=== PATIENT | female | born 1965 | race Caucasian/White ===

== ENCOUNTER 2017-12-25 11:34 | Inpatient (IN) | payer OTHER ==
[2017-12-22 13:27] LABS: BASOPHILS # (AUTO) 0.05 x10^3/uL (0-0.1); BASOPHILS % (AUTO) 1 % (0-1); EOSINOPHILS # (AUTO) 0.21 x10^3/uL (0-0.4); EOSINOPHILS % (AUTO) 4 % (1-7); INTERNATIONAL NORMALIZED RATIO 0.96 (0.93-1.1); LYMPHOCYTES # (AUTO) 1.81 x10^3/uL (1-3.4); LYMPHOCYTES % (AUTO) 31 % (22-44); MD NO; MEAN CORPUSCULAR HGB CONC 33.8 g/dL (32.4-35.8); MEAN CORPUSCULAR VOLUME 94.7 fL (80-100); MEAN PLATELET VOLUME 8.3 fL (7.4-10.4); MONOCYTES % (AUTO) 7 % (2-9); NEUTROPHILS # (AUTO) 3.33 x10^3/uL (1.8-6.8); NEUTROPHILS % (AUTO) 57 % (42-75); PLATELET COUNT 353 x10^3/uL (130-400); RED BLOOD COUNT 4.37 x10^6/uL (3.82-5.3); RED CELL DISTRIBUTION WIDTH 13.9 % (9.6-15.2)
[2017-12-22 13:29] LABS: ALBUMIN 3.9 g/dL (3.4-5.0); ANION GAP 9 mmol/L (5-15); CALCIUM 9.4 mg/dL (8.5-10.1); CHLORIDE 103 mmol/L (98-107)
[2017-12-22 13:32] LABS: ALANINE AMINOTRANSFERASE 27 U/L (12-78); ALKALINE PHOSPHATASE 103 U/L (45-117); BILIRUBIN,TOTAL 0.6 mg/dL (0.2-1.0); CREATININE 0.88 mg/dL (0.55-1.02); TOTAL PROTEIN 7.6 g/dL (6.4-8.2)
[~2017-12-25] VITALS: Ht 170.2 cm; Wt 68.3 kg
[~2017-12-25 11:34] MED LIST: IBUP-1221 PO
[2017-12-25] MEDS ORDERED: LACTATED RINGERS 1,000 ML IV SCH (12:22)
[2017-12-25] MEDS ORDERED: ACETAMINOPHEN 500 MG TABLET PO ONE (12:30)
[2017-12-25] MEDS ORDERED: ONDANSETRON ODT 8 MG PO ONE (12:30)
[2017-12-25] MEDS ORDERED: GABAPENTIN 300 MG CAPSULE PO ONE (12:30)
[2017-12-25] MEDS ORDERED: MIDAZOLAM 1 MG/ML, 2ML ONE (12:57)
[2017-12-25] MEDS ORDERED: PROPOFOL 10 MG/ML, 20ML ONE ×2 (12:58)
[2017-12-25] MEDS ORDERED: DEXAMETHASONE 4 MG/ML, 1ML ONE ×2 (12:58)
[2017-12-25] MEDS ORDERED: ROCURONIUM 10MG/ML,5ML ONE ×2 (12:58→19:22)
[2017-12-25] MEDS ORDERED: CEFAZOLIN 1,000 MG ONE ×2 (12:58)
[2017-12-25] MEDS ORDERED: SUCCINYLCHOLINE 20 MG/ML, 10ML ONE (12:58)
[2017-12-25] MEDS ORDERED: FENTANYL PF 250 MCG/5ML ONE (12:58)
[2017-12-25] MEDS ORDERED: EPHEDRINE 50 MG/ML, 1ML IVPush PRN (15:00)
[2017-12-25] MEDS ORDERED: OXYcodone 5 MG/5 ML ORAL.SOL UDC PO PRN (15:00)
[2017-12-25] MEDS ORDERED: FENTANYL PF 100 MCG/2ML IV PRN (15:00)
[2017-12-25] MEDS ORDERED: MEPERIDINE/PF 25MG/0.5ML IVPush PRN (15:00)
[2017-12-25] MEDS ORDERED: MIDAZOLAM 1 MG/ML, 2ML IV PRN (15:00)
[2017-12-25] MEDS ORDERED: MORPHINE SULFATE 4 MG/ML, 1ML IVPush PRN (15:00)
[2017-12-25] MEDS ORDERED: METOPROLOL 1 MG/ML, 5ML IV PRN (15:00)
[2017-12-25] MEDS ORDERED: DIPHENHYDRAMINE 50 MG/ML, 1ML IVPush PRN (15:00)
[2017-12-25] MEDS ORDERED: hydrALAzine 20 MG/ML, 1ML IV PRN (15:00)
[2017-12-25] MEDS ORDERED: LORazepam 2 MG/ML, 1ML IVPush PRN (15:00)
[2017-12-25] MEDS ORDERED: ALBUTEROL SULFATE 2.5 MG/3 ML NPPB PRN (15:00)
[2017-12-25] MEDS ORDERED: PROCHLORPERAZINE 5 MG/ML, 2ML IV PRN (15:00)
[2017-12-25] MEDS ORDERED: LABETALOL 5MG/ML, 20ML IV PRN (15:00)
[2017-12-25] MEDS ORDERED: DIAZEPAM 5 MG/ML, 2ML IVPush PRN (15:00)
[2017-12-25] MEDS ORDERED: BUPIVACAINE 0.25% ONE (17:03)
[2017-12-25] MEDS ORDERED: EPINEPHRINE 1 MG/ML, 1ML ONE (17:03)
[2017-12-25] MEDS ORDERED: INDOCYANINE GREEN 25 MG VIAL ONE (17:03)
[2017-12-25] MEDS ORDERED: PHENYLEPHRINE 10 MG/ML ONE (17:38)
[2017-12-25] MEDS ORDERED: KETAMINE 50 MG/ML, 10ML ONE (17:38)
[2017-12-25] MEDS ORDERED: LIDOCAINE 2% 100MG/5ML SYRINGE ONE (17:38)
[2017-12-25] MEDS ORDERED: ALBUMIN HUMAN 5% 250 ML IV STA (19:45)
[2017-12-25] MEDS ORDERED: ALBUMIN HUMAN 5% 500 ML ONE (19:49)
[2017-12-25] MEDS ORDERED: HYDROmorphone 2 MG/ML, 1ML ONE (21:46)
[2017-12-25] MEDS: HYDROmorphone 1 MG/ML, 1ML IV PRN ×2 (21:48→22:19)
[2017-12-25 21:51] LABS: BASOPHILS # (AUTO) 0.03 x10^3/uL (0-0.1); BASOPHILS % (AUTO) 0 % (0-1); EOSINOPHILS # (AUTO) 0.08 x10^3/uL (0-0.4); EOSINOPHILS % (AUTO) 1 % (1-7); LYMPHOCYTES # (AUTO) 1.52 x10^3/uL (1-3.4); LYMPHOCYTES % (AUTO) 13 % (22-44); MD NO; MEAN CORPUSCULAR HEMOGLOBIN 32.1 pg (27.0-34.8); MEAN CORPUSCULAR HGB CONC 33.5 g/dL (32.4-35.8); MEAN CORPUSCULAR VOLUME 96.1 fL (80-100); MEAN PLATELET VOLUME 7.9 fL (7.4-10.4); MONOCYTES # (AUTO) 0.11 x10^3/uL (0.2-0.8); MONOCYTES % (AUTO) 1 % (2-9); NEUTROPHILS # (AUTO) 10.48 x10^3/uL (1.8-6.8); NEUTROPHILS % (AUTO) 86 % (42-75); PLATELET COUNT 288 x10^3/uL (130-400); RED BLOOD COUNT 2.67 x10^6/uL (3.82-5.3)
[2017-12-25 21:59] LABS: ANION GAP 8 mmol/L (5-15); CALCIUM 7.1 mg/dL (8.5-10.1); CHLORIDE 108 mmol/L (98-107)
[2017-12-25] MEDS ORDERED: POTASSIUM CHLORIDE 40 MEQ in SODIUM CHLORIDE 0.9% 500 ML IV ONE (23:00)
[2017-12-26] VITALS (13 sets, daily range): BP systolic 102–146; BP diastolic 57–92
[2017-12-26] MEDS ORDERED: INSTRUCTION SEE COMMENTS XX PRN (01:30)
[2017-12-26] MEDS ORDERED: ONDANSETRON 2MG/ML, 2ML IV PRN (01:30)
[2017-12-26] MEDS ORDERED: KETOROLAC 30 MG/1 ML IV PRN (01:30)
[2017-12-26] MEDS: POTASSIUM CHLORIDE 20 MEQ in D5%-0.45% NACL 1,000 ML IV SCH ×4 (02:52→23:32)
[2017-12-26 05:33] LABS: MEAN CORPUSCULAR HEMOGLOBIN 32.4 pg (27.0-34.8); MEAN CORPUSCULAR HGB CONC 33.8 g/dL (32.4-35.8); MEAN CORPUSCULAR VOLUME 95.8 fL (80-100); MEAN PLATELET VOLUME 8.6 fL (7.4-10.4); PLATELET COUNT 204 x10^3/uL (130-400); RED BLOOD COUNT 2.28 x10^6/uL (3.82-5.3); RED CELL DISTRIBUTION WIDTH 14.2 % (9.6-15.2)
[2017-12-26 05:40] LABS: ANION GAP 7 mmol/L (5-15); CHLORIDE 109 mmol/L (98-107)
[2017-12-26 06:06] LABS: BASOPHILS # (AUTO) 0.01 x10^3/uL (0-0.1); BASOPHILS % (AUTO) 0 % (0-1); EOSINOPHILS % (AUTO) 0 % (1-7); LYMPHOCYTES # (AUTO) 0.49 x10^3/uL (1-3.4); LYMPHOCYTES % (AUTO) 5 % (22-44); MD SCAN; MONOCYTES # (AUTO) 0.44 x10^3/uL (0.2-0.8); MONOCYTES % (AUTO) 5 % (2-9); NEUTROPHILS # (AUTO) 8.13 x10^3/uL (1.8-6.8); NEUTROPHILS % (AUTO) 90 % (42-75)
[2017-12-26] MEDS ORDERED: SODIUM CHLORIDE 0.9%, 500ML IVBOLUS ONE (14:30)
[2017-12-26] MEDS: KETOROLAC 30 MG/1 ML IV SCH (21:21)
[2017-12-27] MEDS ORDERED: KETOROLAC 30 MG/1 ML IV SCH (01:30)
[2017-12-27 01:55] VITALS: BP 103/64
[2017-12-27] MEDS: KETOROLAC 30 MG/1 ML IV SCH ×4 (03:41→22:05)
[2017-12-27 05:34] LABS: CHLORIDE 116 mmol/L (98-107)
[2017-12-27 05:40] LABS: ANION GAP 6 mmol/L (5-15); CALCIUM 7.5 mg/dL (8.5-10.1); CREATININE 0.61 mg/dL (0.55-1.02)
[2017-12-27 05:44] LABS: BASOPHILS # (AUTO) 0.01 x10^3/uL (0-0.1); BASOPHILS % (AUTO) 0 % (0-1); EOSINOPHILS # (AUTO) 0.07 x10^3/uL (0-0.4); EOSINOPHILS % (AUTO) 1 % (1-7); LYMPHOCYTES % (AUTO) 14 % (22-44); MD NO; MEAN CORPUSCULAR HEMOGLOBIN 31.5 pg (27.0-34.8); MEAN CORPUSCULAR VOLUME 92.5 fL (80-100); MEAN PLATELET VOLUME 8.4 fL (7.4-10.4); MONOCYTES # (AUTO) 0.23 x10^3/uL (0.2-0.8); MONOCYTES % (AUTO) 4 % (2-9); NEUTROPHILS # (AUTO) 5.36 x10^3/uL (1.8-6.8); NEUTROPHILS % (AUTO) 82 % (42-75); PLATELET COUNT 185 x10^3/uL (130-400); RED BLOOD COUNT 2.86 x10^6/uL (3.82-5.3); RED CELL DISTRIBUTION WIDTH 15.2 % (9.6-15.2)
[2017-12-27] MEDS: POTASSIUM CHLORIDE 20 MEQ in D5%-0.45% NACL 1,000 ML IV SCH ×3 (06:32→22:00)
[2017-12-27 13:40] VITALS: BP 136/92
[2017-12-27 19:55] VITALS: BP 155/90
[2017-12-28 01:10] VITALS: BP 138/84
[2017-12-28] MEDS: KETOROLAC 30 MG/1 ML IV SCH ×4 (05:02→22:49)
[2017-12-28] MEDS: POTASSIUM CHLORIDE 20 MEQ in D5%-0.45% NACL 1,000 ML IV SCH ×3 (05:55→23:36)
[2017-12-28 07:29] VITALS: BP 129/82
[2017-12-28 13:09] VITALS: BP 128/88
[2017-12-28 19:06] VITALS: BP 179/78
[2017-12-29 02:13] VITALS: BP 129/87
[2017-12-29] MEDS: POTASSIUM CHLORIDE 20 MEQ in D5%-0.45% NACL 1,000 ML IV SCH ×3 (05:10→20:19)
[2017-12-29] MEDS: KETOROLAC 30 MG/1 ML IV PRN ×3 (05:11→18:55)
[2017-12-29 06:04] LABS: ANION GAP 7 mmol/L (5-15); CALCIUM 8.6 mg/dL (8.5-10.1); CHLORIDE 111 mmol/L (98-107)
[2017-12-29 06:05] LABS: CREATININE 0.57 mg/dL (0.55-1.02)
[2017-12-29 06:13] LABS: BASOPHILS # (AUTO) 0.01 x10^3/uL (0-0.1); BASOPHILS % (AUTO) 0 % (0-1); EOSINOPHILS # (AUTO) 0.15 x10^3/uL (0-0.4); EOSINOPHILS % (AUTO) 3 % (1-7); LYMPHOCYTES # (AUTO) 0.35 x10^3/uL (1-3.4); LYMPHOCYTES % (AUTO) 6 % (22-44); MD NO; MEAN CORPUSCULAR HEMOGLOBIN 31.6 pg (27.0-34.8); MEAN CORPUSCULAR HGB CONC 33.7 g/dL (32.4-35.8); MEAN CORPUSCULAR VOLUME 93.8 fL (80-100); MEAN PLATELET VOLUME 8.1 fL (7.4-10.4); MONOCYTES # (AUTO) 0.16 x10^3/uL (0.2-0.8); MONOCYTES % (AUTO) 3 % (2-9); NEUTROPHILS # (AUTO) 5.23 x10^3/uL (1.8-6.8); NEUTROPHILS % (AUTO) 89 % (42-75); PLATELET COUNT 244 x10^3/uL (130-400); RED BLOOD COUNT 2.95 x10^6/uL (3.82-5.3); RED CELL DISTRIBUTION WIDTH 14.5 % (9.6-15.2)
[2017-12-29 08:00] VITALS: BP 139/88
[2017-12-29 08:23] VITALS: BP 130/84
[2017-12-29 13:38] VITALS: BP 122/83
[2017-12-29 21:12] VITALS: BP 159/89
[2017-12-30] VITALS (8 sets, daily range): BP systolic 135–172; BP diastolic 79–108
[2017-12-30] MEDS: POTASSIUM CHLORIDE 20 MEQ in D5%-0.45% NACL 1,000 ML IV SCH ×3 (02:27→21:03)
[2017-12-30] MEDS: OXYcodone/APAP 5/325MG TABLET PO PRN (20:28)
[2017-12-31 01:21] VITALS: BP 123/82
[2017-12-31] MEDS: POTASSIUM CHLORIDE 20 MEQ in D5%-0.45% NACL 1,000 ML IV SCH ×2 (03:29→10:17)
[2017-12-31] MEDS: OXYcodone/APAP 5/325MG TABLET PO PRN ×3 (04:31→20:45)
[2017-12-31 05:05] LABS: BASOPHILS # (AUTO) 0.02 x10^3/uL (0-0.1); BASOPHILS % (AUTO) 1 % (0-1); EOSINOPHILS # (AUTO) 0.28 x10^3/uL (0-0.4); EOSINOPHILS % (AUTO) 8 % (1-7); LYMPHOCYTES # (AUTO) 1.06 x10^3/uL (1-3.4); LYMPHOCYTES % (AUTO) 30 % (22-44); MD NO; MEAN CORPUSCULAR HEMOGLOBIN 31.7 pg (27.0-34.8); MEAN CORPUSCULAR HGB CONC 34.1 g/dL (32.4-35.8); MEAN CORPUSCULAR VOLUME 92.8 fL (80-100); MONOCYTES % (AUTO) 9 % (2-9); NEUTROPHILS # (AUTO) 1.84 x10^3/uL (1.8-6.8); NEUTROPHILS % (AUTO) 53 % (42-75); PLATELET COUNT 320 x10^3/uL (130-400); RED BLOOD COUNT 2.98 x10^6/uL (3.82-5.3); RED CELL DISTRIBUTION WIDTH 14.6 % (9.6-15.2)
[2017-12-31 05:14] LABS: ALBUMIN 2.1 g/dL (3.4-5.0); ANION GAP 5 mmol/L (5-15); CALCIUM 8.1 mg/dL (8.5-10.1); CHLORIDE 109 mmol/L (98-107)
[2017-12-31 05:18] LABS: ALANINE AMINOTRANSFERASE 14 U/L (12-78); ALKALINE PHOSPHATASE 62 U/L (45-117); BILIRUBIN,TOTAL 0.5 mg/dL (0.2-1.0); CREATININE 0.58 mg/dL (0.55-1.02); TOTAL PROTEIN 5.3 g/dL (6.4-8.2)
[2017-12-31 07:40] VITALS: BP 126/76
[2017-12-31] MEDS ORDERED: D5%-0.45NACL+KCL 20MEQ 1,000 ML IV SCH (10:30)
[2017-12-31] MEDS: D5%-0.45NACL+KCL 20MEQ 1,000 ML IV SCH ×2 (11:53→18:35)
[2017-12-31 12:29] VITALS: BP 160/89
[2017-12-31 20:28] VITALS: BP 173/94
[2018-01-01 01:09] VITALS: BP 136/90
[2018-01-01 07:42] VITALS: BP 162/99
[2018-01-01] MEDS: OXYcodone/APAP 5/325MG TABLET PO PRN ×2 (07:50→14:34)
[2018-01-01 13:10] VITALS: BP 149/95
[2018-01-01] MEDS ORDERED: ONDA4TAB7 PO (15:15)
[2018-01-01] MEDS ORDERED: OXYC-306 PO (15:15)
== END 2018-01-01 15:45 | disposition home or self-care (01) | DRG 737 ==
LOC: OUT 11:34 → 4NOR 23:36 → OUT 23:47 → DCLOUNGE 01-01 15:30
PROVIDERS: ADMIT Specialist; ATTEND Specialist
PROC: 30233N1 Transfusion of Nonautologous Red Blood Cells into Peripheral Vein, Percutaneous Approach (ICD-10-PCS; 2017-12-29)
PROC: 0UT20ZZ Resection of Bilateral Ovaries, Open Approach (ICD-10-PCS; principal; 2018-01-01)
PROC: 0DBP0ZZ Excision of Rectum, Open Approach (ICD-10-PCS; 2018-01-01)
PROC: 0UT70ZZ Resection of Bilateral Fallopian Tubes, Open Approach (ICD-10-PCS; 2018-01-01)
PROC: 0UT90ZZ Resection of Uterus, Open Approach (ICD-10-PCS; 2018-01-01)
PROC: 0DTJ0ZZ Resection of Appendix, Open Approach (ICD-10-PCS; 2018-01-01)
PROC: 0DTU0ZZ Resection of Omentum, Open Approach (ICD-10-PCS; 2018-01-01)
PROC: 0UJD4ZZ Inspection of Uterus and Cervix, Percutaneous Endoscopic Approach (ICD-10-PCS; 2018-01-01)
PROC: 8E0W4CZ Robotic Assisted Procedure of Trunk Region, Percutaneous Endoscopic Approach (ICD-10-PCS; 2018-01-01)
PROC: 07BD0ZZ Excision of Aortic Lymphatic, Open Approach (ICD-10-PCS; 2018-01-01)
PROC: 07BC0ZZ Excision of Pelvis Lymphatic, Open Approach (ICD-10-PCS; 2018-01-01)
PROC: 0DBN0ZZ Excision of Sigmoid Colon, Open Approach (ICD-10-PCS; 2018-01-01)
PROC: 0T778DZ Dilation of Left Ureter with Intraluminal Device, Via Natural or Artificial Opening Endoscopic (ICD-10-PCS; 2018-01-01)
DX: C56.2 Malignant neoplasm of left ovary (principal); D62 Acute posthemorrhagic anemia; I10 Essential (primary) hypertension; N13.5 Crossing vessel and stricture of ureter without hydronephrosis; Z53.31 Laparoscopic surgical procedure converted to open procedure; G89.18 Other acute postprocedural pain
CPT/HCPCS: 36415; 71046; 74018; 80048; 80053; 85014; 85018; 85025; 85610; 85730; 86850; 86900; 86923; 88304; 88305; 88307; 88331; G0378; J0171; J0690; J1100; J1170; J1885; J2250; J2270; J2704; J3010; J3480; J3490; P9045; Q0162; C1765; C1769; C2617; J0330; J2370; J7040; J7120; P9016

== ENCOUNTER → 2018-02-13 | Outpatient (CLI) | payer OTHER ==
[~2018-02-13] MED LIST changes: +OMNIPAQUE 350 MG/ML, 100ML BOTTLE ONE; +ONDA4TAB7 PO; +OXYC-306 PO
== END | disposition home or self-care (01) ==
LOC: CFH 12:05
PROVIDERS: ATTEND Specialist
DX: N13.30 Unspecified hydronephrosis (principal); C56.9 Malignant neoplasm of unspecified ovary; Z96.0 Presence of urogenital implants
CPT/HCPCS: 74177; Q9967

== ENCOUNTER → 2020-07-16 | Outpatient (CLI) | payer MEDICARE, OTHER ==
[~2020-07-16] MED LIST changes: +DEXA4TAB66 PO; -OXYC-306 PO; +OXYC1TAB17 PO
== END | disposition home or self-care (01) ==
LOC: CFH 13:48
PROVIDERS: ATTEND Obstetrics & Gynecology
DX: Z51.12 Encounter for antineoplastic immunotherapy (principal); C56.2 Malignant neoplasm of left ovary; N13.30 Unspecified hydronephrosis; N83.202 Unspecified ovarian cyst, left side; K43.2 Incisional hernia without obstruction or gangrene; E04.1 Nontoxic single thyroid nodule; K76.89 Other specified diseases of liver; G89.18 Other acute postprocedural pain; R91.8 Other nonspecific abnormal finding of lung field; Z98.82 Breast implant status
CPT/HCPCS: 71260; 74177; Q9967

== ENCOUNTER 2020-07-28 08:56 | Day surgery (SDC) | payer MEDICARE ==
[~2020-07-28] VITALS: Ht 170.2 cm; Wt 69.2 kg
[~2020-07-28 08:56] MED LIST changes: -OMNIPAQUE 350 MG/ML, 100ML BOTTLE ONE
[2020-07-28] MEDS ORDERED: NONE PER PT (09:44)
[2020-07-28] MEDS ORDERED: LACTATED RINGERS 1,000 ML IV SCH (10:00)
[2020-07-28] MEDS ORDERED: CEFOTETAN PMX 2GM/50ML 50 ML IVPB ONE (10:00)
[2020-07-28] MEDS ORDERED: CHLORHEXIDINE 15 ML UDC PO ONE (10:00)
[2020-07-28] MEDS ORDERED: MIDAZOLAM 1 MG/ML, 2ML ONE (10:15)
[2020-07-28] MEDS ORDERED: FENTANYL PF 250 MCG/5ML ONE (10:15)
[2020-07-28 10:16] LABS: BASOPHILS % (AUTO) 1 % (0-1); EOSINOPHILS % (AUTO) 3 % (1-7); LYMPHOCYTES % (AUTO) 22 % (22-44); MEAN CORPUSCULAR HEMOGLOBIN 29.7 pg (27.0-34.8); MEAN CORPUSCULAR HGB CONC 33.4 g/dL (32.4-35.8); MEAN PLATELET VOLUME 7.7 fL (7.4-10.4); MONOCYTES % (AUTO) 5 % (2-9); NEUTROPHILS % (AUTO) 70 % (42-75); PLATELET COUNT 313 x10^3/uL (130-400); RED BLOOD COUNT 5.01 x10^6/uL (3.82-5.3); RED CELL DISTRIBUTION WIDTH 23.2 % (9.6-15.2)
[2020-07-28 10:17] VITALS: BP 109/58
[2020-07-28 10:32] LABS: BILIRUBIN,TOTAL 0.5 mg/dL (0.2-1.0)
[2020-07-28 10:33] LABS: INTERNATIONAL NORMALIZED RATIO 0.95 (0.93-1.1); PROTHROMBIN TIME 10.2 Seconds (9.6-11.5)
[2020-07-28 10:37] LABS: ALANINE AMINOTRANSFERASE 21 U/L (12-78); ALBUMIN 3.9 g/dL (3.4-5.0); ANION GAP 6 mmol/L (5-15); CALCIUM 9.3 mg/dL (8.5-10.1); CHLORIDE 111 mmol/L (98-107); CREATININE 0.82 mg/dL (0.55-1.02)
[2020-07-28 10:39] LABS: ALKALINE PHOSPHATASE 109 U/L (45-117); TOTAL PROTEIN 7.5 g/dL (6.4-8.2)
[2020-07-28 10:45] LABS: MD MORPH REVIEW ONLY
[2020-07-28 10:51] LABS: ANISOCYTOSIS 1+
[2020-07-28 10:52] LABS: <PLATELET ESTIMATE> ADEQUATE; <PLT MORPHOLOGY> NORMAL PLT MORPH; OVALOCYTES 1+
[2020-07-28] MEDS ORDERED: FENTANYL PF 100 MCG/2ML IV PRN (11:00)
[2020-07-28] MEDS ORDERED: HYDROmorphone 1 MG/ML, 1ML INJ IVPush PRN (11:00)
[2020-07-28] MEDS ORDERED: HALOPERIDOL 5 MG/ML IV PRN (11:00)
[2020-07-28] MEDS ORDERED: morphine SULFATE 10 MG/ML, 1ML IVPush PRN (11:00)
[2020-07-28] MEDS ORDERED: PROMETHAZINE 25 MG/ML, 1ML IVPush PRN (11:00)
[2020-07-28] MEDS ORDERED: MEPERIDINE/PF 25MG/0.5ML IVPush PRN (11:00)
[2020-07-28] MEDS ORDERED: LABETALOL 5MG/ML, 20ML IV PRN (11:00)
[2020-07-28] MEDS ORDERED: ACETAMINOPHEN 325 MG TABLET PO PRN (11:00)
[2020-07-28] MEDS ORDERED: OXYcodone 5 MG/5 ML ORAL.SOL UDC PO PRN (11:00)
[2020-07-28] MEDS ORDERED: hydrALAzine 20 MG/ML, 1ML IV PRN (11:00)
[2020-07-28] MEDS ORDERED: OMNIPAQUE 350 MG/ML, 50 ML BOTTLE ONE (11:40)
[2020-07-28] MEDS ORDERED: DEXAMETHASONE 4 MG/ML, 1ML ONE (12:09)
[2020-07-28] MEDS ORDERED: ONDANSETRON 2MG/ML, 2ML ONE (12:09)
[2020-07-28] MEDS ORDERED: CEFAZOLIN 1,000 MG ONE (12:09)
[2020-07-28] MEDS ORDERED: PROPOFOL 10 MG/ML, 20ML ONE (12:09)
[2020-07-28] MEDS ORDERED: ACETAMINOPHEN 650 MG/20.3 ML UDC ONE (12:33)
[2020-07-28] MEDS ORDERED: OXYcodone 5 MG/5 ML ORAL.SOL UDC ONE (12:34)
== END 2020-07-28 14:45 | disposition home or self-care (01) ==
LOC: OUT 08:56
PROVIDERS: ATTEND Specialist
DX: Z46.6 Encounter for fitting and adjustment of urinary device (principal); N13.1 Hydronephrosis with ureteral stricture, not elsewhere classified; C56.2 Malignant neoplasm of left ovary; Z20.822 Contact with and (suspected) exposure to COVID-19; Z79.01 Long term (current) use of anticoagulants; Z79.899 Other long term (current) drug therapy; Z90.710 Acquired absence of both cervix and uterus; Z90.49 Acquired absence of other specified parts of digestive tract; Z98.890 Other specified postprocedural states
CPT/HCPCS: 36415; 52332; 74420; 80053; 85025; 85610; 85730; 87070; 87075; 87077; 87186; 93005; C2617; J0690; J1100; J2250; J2405; J2704; J3010; J7120; Q9967; U0003; 76000

== ENCOUNTER → 2020-11-06 | Outpatient (CLI) | payer MEDICARE ==
[~2020-11-06] MED LIST changes: +NONE PER PT; +OMEP20TA62 PO
[2020-11-06 11:12] LABS: ALANINE AMINOTRANSFERASE 23 U/L (12-78); ALBUMIN 3.7 g/dL (3.4-5.0); ANION GAP 4 mmol/L (5-15); CALCIUM 9.6 mg/dL (8.5-10.1); CHLORIDE 106 mmol/L (98-107)
[2020-11-06 11:13] LABS: BASOPHILS % (AUTO) 1 % (0-1); EOSINOPHILS % (AUTO) 4 % (1-7); INTERNATIONAL NORMALIZED RATIO 0.96 (0.93-1.1); LYMPHOCYTES % (AUTO) 27 % (22-44); MEAN CORPUSCULAR HGB CONC 33.8 g/dL (32.4-35.8); MEAN PLATELET VOLUME 7.7 fL (7.4-10.4); MONOCYTES % (AUTO) 6 % (2-9); NEUTROPHILS % (AUTO) 62 % (42-75); PLATELET COUNT 290 x10^3/uL (130-400); PROTHROMBIN TIME 10.3 Seconds (9.6-11.5); RED CELL DISTRIBUTION WIDTH 15.2 % (9.6-15.2)
[2020-11-06 11:14] LABS: ALKALINE PHOSPHATASE 93 U/L (45-117); BILIRUBIN,TOTAL 0.6 mg/dL (0.2-1.0); CREATININE 0.92 mg/dL (0.55-1.02); TOTAL PROTEIN 7.5 g/dL (6.4-8.2)
== END | disposition home or self-care (01) ==
LOC: STAR 10:19
PROVIDERS: ATTEND Specialist
DX: Z01.818 Encounter for other preprocedural examination (principal); C56.1 Malignant neoplasm of right ovary; C56.2 Malignant neoplasm of left ovary; N13.30 Unspecified hydronephrosis; E04.1 Nontoxic single thyroid nodule; K76.89 Other specified diseases of liver
CPT/HCPCS: 36415; 71046; 80053; 85025; 85610; 85730; 93005

== ENCOUNTER 2020-11-10 06:51 | Day surgery (SDC) | payer MEDICARE ==
[~2020-11-10] VITALS: Ht 170.2 cm; Wt 68.9 kg
[~2020-11-10 06:51] MED LIST changes: +OXYC1TAB16 PO; -OXYC1TAB17 PO
[2020-11-10 07:21] VITALS: BP 112/82
[2020-11-10] MEDS ORDERED: LIDOCAINE-MPF 1%, 2ML ONE (07:28)
[2020-11-10] MEDS ORDERED: CHLORHEXIDINE 15 ML UDC ONE (07:28)
[2020-11-10] MEDS ORDERED: CEFOTETAN PMX 2GM/50ML 50 ML IVPB ONE (07:30)
[2020-11-10] MEDS ORDERED: CHLORHEXIDINE 15 ML UDC PO ONE (07:30)
[2020-11-10] MEDS ORDERED: LACTATED RINGERS 1,000 ML IV SCH (07:30)
[2020-11-10] MEDS ORDERED: LIDOCAINE-MPF 1%, 2ML INFIL ONE (07:30)
[2020-11-10] MEDS ORDERED: FENTANYL PF 100 MCG/2ML ONE (10:08)
[2020-11-10] MEDS ORDERED: MIDAZOLAM 1 MG/ML, 2ML ONE (10:08)
[2020-11-10] MEDS ORDERED: CEFOTETAN 2 GM ONE (10:13)
[2020-11-10] MEDS ORDERED: ONDANSETRON 2MG/ML, 2ML ONE (10:13)
[2020-11-10] MEDS ORDERED: PROPOFOL 10 MG/ML, 20ML ONE (10:13)
[2020-11-10] MEDS ORDERED: OMNIPAQUE 180 MG/ML, 20ML VIAL ONE (10:42)
[2020-11-10] MEDS ORDERED: ACETAMINOPHEN 325 MG TABLET PO PRN (11:00)
[2020-11-10] MEDS ORDERED: MEPERIDINE/PF 25MG/0.5ML IVPush PRN (11:00)
[2020-11-10] MEDS ORDERED: HYDROmorphone 1 MG/ML, 1ML INJ IVPush PRN (11:00)
[2020-11-10] MEDS ORDERED: FENTANYL PF 100 MCG/2ML IV PRN (11:00)
[2020-11-10] MEDS ORDERED: OXYcodone 5 MG/5 ML ORAL.SOL UDC PO PRN (11:00)
[2020-11-10] MEDS ORDERED: ONDANSETRON 2MG/ML, 2ML IVPush PRN (11:00)
[2020-11-10] MEDS ORDERED: PROMETHAZINE 25 MG/ML, 1ML IVPush PRN (11:00)
== END 2020-11-10 12:50 | disposition home or self-care (01) ==
LOC: OUT 06:51
PROVIDERS: ATTEND Specialist
DX: Z46.6 Encounter for fitting and adjustment of urinary device (principal); N13.1 Hydronephrosis with ureteral stricture, not elsewhere classified; K21.9 Gastro-esophageal reflux disease without esophagitis; E04.9 Nontoxic goiter, unspecified; Z79.899 Other long term (current) drug therapy; Z86.711 Personal history of pulmonary embolism
CPT/HCPCS: 52332; 74018; 87070; 87075; 87205; C1769; C2617; J2250; J2405; J2704; J3010; J7120; Q9965; 76000